=== PATIENT | female | born 1980 | race Caucasian/White ===

== ENCOUNTER 2020-09-23 16:22 | Emergency (ER) | payer MEDICAID, SELFPAY ==
[2020-09-23 16:24] VITALS: BP 128/79; PULSE 79; RESP 16; TEMP 36.9; O2SAT 100; BMI 23.0
--- NOTE | 2020-09-23 16:42 | XR_ITS ---
PROCEDURE: XR FINGER RT MIN 2V CLINICAL INDICATION: injury Pain following injury, laceration COMPARISON: No exams were available for comparison FINDINGS: There is a comminuted fracture involving the distal aspect of the distal phalanx the 3rd digit. There are multiple small bony fragments which are somewhat displaced at the laceration site IMPRESSION: Comminuted fracture distal phalanx 3rd digit Dictated by: Olman Palacios MD 09/23/2020 17:47 Olman Palacios MD in [place] 09/23/2020 17:47
--- NOTE | 2020-09-23 17:03 | HMH.EDGENADL ---
ED Disposition Clinical Impression: Phalanx, distal fracture of finger Qualifiers: Encounter type: initial encounter Finger: middle finger Fracture type: open Fracture alignment: displaced Laterality: right Qualified Code(s): S62.632B - Displaced fracture of distal phalanx of right middle finger, initial encounter for open fracture Laceration of middle finger Qualifiers: Encounter type: initial encounter Damage to nail status: with damage Foreign body presence: without foreign body Laterality: right Qualified Code(s): S61.312A - Laceration without foreign body of right middle finger with damage to nail, initial encounter Nailbed laceration, finger Qualifiers: Encounter type: initial encounter Qualified Code(s): S61.319A - Laceration without foreign body of unspecified finger with damage to nail, initial encounter Disposition: Home, Self-Care Condition on Discharge: Good Instructions: DI for Laceration Repair Additional Instructions: Keep the bandage and splint on until you see Dr. Mcdaniel Call Dr. Mcdaniel tomorrow to make appointment to be seen within 3 to 4 days Take Keflex as prescribed Elevate hand to reduce swelling and pain Tylenol 3, and then [place] as needed for pain Return to the emergency department if intolerable pain, fever, red streaks. Additional instructions for CONTROLLED SUBSTANCES: You have been prescribed a medication that is a controlled substance. Controlled substances include pain medications known as opiates and sedative nerve medications known as benzodiazepines. Tramadol, fioricet, and gabapentin are also controlled substances. Some common opiates include: Codeine (such as Tylenol #3) Hydrocodone (Vicodin, Lortab, Lorcet, [place]) Oxycodone (Percocet, Percodan, Oxycodone, Oxy IR) Some common benzodiazepines include: Diazepam (Valium) Lorazepam (Ativan) Alprazolam (Xanax) Clonazepam (Klonopin) Oxazepam (Serax) All of these controlled substances are highly addictive and frequently abused. Misuse can and frequently does lead to addiction as well as overdose and . Medication should be stored in a locked cabinet or other secure storage unit. Do not store the medication in a motor vehicle. Short term supplies, 3 days or less, are prescribed because of the highly addictive nature of the medication. Any of the controlled substance medication NOT taken should be disposed of properly and NOT SAVED. The recommended method of disposing of unused medications is: Place the medicines in a sealable plastic bag. If the medicine is a solid, crush it or add water to dissolve it. Add something undesirable (cat litter, coffee grounds, etc.) Dispose of sealed bag in household trash Do not flush or pour unused medicines down a sink or drain. Controlled substances should not be shared, given away or sold. Because of the addictive nature and frequent abuse, these medications are sometimes stolen. These medications should be kept in a safe place where they cannot be stolen. Do not keep them in your car or purse. Lost or stolen prescriptions for controlled substances WILL NOT BE REFILLED in this emergency department, regardless of whether a police report was filed. Prescriptions: Hydrocod/Acet 5/325 mg [[place] 5/325mg tablet] 1 tab PO Q6HP PRN #10 tab PRN Reason: Pain Transmission Status: Received by [facility] 493 cephALEXin [Keflex 500mg Cap] 500 mg PO QID #28 cap Transmission Status: Received by [facility] 493 Referrals: Lluvia Bagley [Primary Care Provider] - - Critical Care Critical Care Time: No Attestation: On 09/23/20, the high probability of a clinically significant, sudden or life threatening deterioration of the following system(s) required my full and direct attention, intervention and personal management. The time I documented below is in addition to time spent performing reported procedures but includes the following listed in this critical care not
--- NOTE | 2020-09-23 17:34 | PC.NURSE ---
ortho department operations manager paged.
--- NOTE | 2020-09-23 17:37 | PC.NURSE ---
Dr Hamilton speaking with Ortho content strategy lead at this time.
[2020-09-23 18:29] VITALS: BP 122/82; PULSE 77; RESP 19; TEMP 36.9; O2SAT 100
== END 2020-09-23 18:40 | disposition home or self-care (01) ==
PROVIDERS: Emergency Provider Emergency Medicine; PCP Nurse Practitioner Family
DX: S62.632B Displaced fracture of distal phalanx of right middle finger, initial encounter for open fracture (principal); S61.312A Laceration without foreign body of right middle finger with damage to nail, initial encounter; Z23 Encounter for immunization; W31.2XXA Contact with powered woodworking and forming machines, initial encounter; Y92.89 Other specified places as the place of occurrence of the external cause; F17.210 Nicotine dependence, cigarettes, uncomplicated
CPT/HCPCS: 11760; 73140; 90471; 90715; 99283

== ENCOUNTER → 2021-07-29 10:59 | Outpatient (CLI) | payer MEDICAID, SELFPAY | PROVIDERS: PCP Nurse Practitioner Family; Visit Provider Nurse Practitioner | DX: Z20.822 Contact with and (suspected) exposure to COVID-19 (principal) | CPT/HCPCS: C9803; U0003; U0005 ==

== ENCOUNTER 2022-02-03 16:03 | Emergency (ER) | payer MEDICAID, SELFPAY ==
[2022-02-03 16:40] VITALS: BP 118/74; PULSE 89; RESP 16; TEMP 37.4; O2SAT 98; BMI 20.4
--- NOTE | 2022-02-03 16:52 | HMH.EDUTC ---
[facility] [place] Clinical Impression: Flu-like symptoms Disposition: Home, Self-Care Condition on Discharge: Good Instructions: How to Avoid a Cold or Flu, Influenza, Nausea and Vomiting-Adult, Ondansetron, Oseltamivir Additional Instructions: ? Start Tamiflu today if you are going to take it. Discussed risk and possible benefits. ? Lots of rest ? Increase Fluids water, Gatorade, powerade, pedialyte,if /toddler/child ? Alternate Tylenol and / or ibuprofen as discussed for fever, aches, chills Follow up IMMEDIATELY with your family doctor for new or worsening Symptoms OR no noticeable improvement over the next 48-72 hours, 911 for difficulty or breathing ? You or your child area contagious until no fever, aches, chills for 24 hours with medication for symptoms ? Help Prevent the spread of influenza: ? Wash your hands often. Use soap and water. Wash your hands after you use the bathroom, change a child's diapers, or sneeze. Wash your hands before you prepare or eat food. Use gel hand cleanser that has 60% alcohol, when soap and water are not available. Do not touch your eyes, nose, or mouth unless you have washed your hands first. ? Cover your mouth when you sneeze or cough. Cough into a tissue or the bend of your arm. If you use a tissue, throw it away immediately and wash your hands. ? Clean shared items with a germ-killing globe cleaner. Clean table surfaces, doorknobs, and light switches. Do not share towels, silverware, and dishes with people who are sick. Wash bed sheets, towels, silverware, and dishes with soap and water. ? Wear a mask over your mouth and nose if you are sick. The face mask may help protect others from becoming infected with the flu. Wear the mask when in common areas of your home or if you seek care with a healthcare provider. ? Stay away from others if you are sick. Stay at home until 24 hours after your fever and symptoms are gone. Prescriptions: Oseltamivir Phosphate [Tamiflu 75mg Capsule] 75 mg PO BID #10 cap Transmission Status: Pending to [facility] 493 Ondansetron [Zofran 4mg ODT] 4 mg PO TIDP PRN #9 tab PRN Reason: Nausea Transmission Status: Pending to [facility] 493 Referrals: Lluvia Bagley [Primary Care Provider] - As needed Time of Disposition: 17:41 Medical Decision Making - Darin Inquiry Pt receiving controlled substance: No Darin was queried for this patient: No Vital Signs: 02/03/22 16:40 Temperature 99.3 F Temperature Source Oral Pulse Rate [Right Brachial] 89 Respiratory Rate 16 Blood Pressure [Right Arm] 118/74 Blood Pressure Mean [Right Arm] 88 Blood Pressure Source [Right Arm] Automatic Cuff Blood Pressure Position [Right Arm] Sitting 02 Sat by Pulse Oximetry 98 Oxygen Delivery Method Room Air - Lab Data Lab results reviewed: Yes: I reviewed the patient's lab results. Lab Results 02/03/22 16:48: Influenza Type A Ag Negative, Influenza Type B Ag Negative Medical Decision Narrative: Patient states that she has taken zofran in the past without complications or reactions [facility] [place] - General Stated complaint: fever,Bopdy aches,RUVALCABA V/D Time Seen by Provider: 02/03/22 16:52 Mode of Arrival: Ambulatory Source of Information: Patient Limitations: No Limitations Description of Symptoms (Recalled from Triage Doc. by RN): PATIENT C/O FEVER, HEADACHE, BODY ACHES, DECREASED APPETITE, STOMACH ACHE AND WEAKNESS X 2 DAYS HEENT Symptoms (Recalled from RN notes): Yes Resp Symptoms (Recalled from RN notes): No Skin Symptoms (Recalled from RN notes): No MS Symptoms (Recalled from RN notes): No Functional Status (Recalled from RN notes): WNL - History of Present Illness Provider Complaint: Patient states that she has been having body aches, chills, n/v, tired and over all does not feel well States that she has continued to get worse over the last couple of days States that she feels like she may have the flu - Related Data Previous Rx's Medication In
[2022-02-03 16:57] LABS: UTC Influenza A Antigen Negative (Negative)
[2022-02-03 16:58] LABS: UTC Influenza B Antigen Negative (Negative)
[2022-02-03 17:42] VITALS: BP 118/74; PULSE 89; RESP 16; TEMP 37.4; O2SAT 98
== END 2022-02-03 17:45 | disposition home or self-care (01) ==
PROVIDERS: Nurse Practitioner; Emergency Provider Family Medicine; PCP Nurse Practitioner Family
DX: J11.1 Influenza due to unidentified influenza virus with other respiratory manifestations (principal); F17.210 Nicotine dependence, cigarettes, uncomplicated
CPT/HCPCS: 87804; 99212; G0463

== ENCOUNTER 2022-02-07 10:19 | Emergency (ER) | payer MEDICAID, SELFPAY ==
[2022-02-07 10:34] VITALS: BP 131/68; PULSE 86; RESP 16; TEMP 36.9; O2SAT 98; BMI 21.2
--- NOTE | 2022-02-07 10:37 | HMH.EDUTC ---
[facility] [place]ression: Abdominal pain Qualifiers: Abdominal location: unspecified location Qualified Code(s): R10.9 - Unspecified abdominal pain Disposition: Still a Patient Condition on Discharge: Fair Referrals: Lluvia Bagley [Primary Care Provider] - Medical Decision Making - Medical Records Medical records reviewed: No: I reviewed the patient's medical records. - Darin Inquiry Pt receiving controlled substance: No Vital Signs: 02/07/22 10:34 Temperature 98.5 F Temperature Source Oral Pulse Rate [Left] 86 Respiratory Rate 16 Blood Pressure [Right Arm] 131/68 Blood Pressure Mean [Right Arm] 89 02 Sat by Pulse Oximetry 98 - Lab Data Lab Results 02/07/22 10:33: Influenza Type A Ag Negative, Influenza Type B Ag Negative 02/07/22 10:40: Group A Strep Rapid Negative Orders (Tests/Meds): ORDERS Category Date Time Status Strep Screen Confirmation Stat Micro 02/07/22 10:40 Received Medical Decision Narrative: She was transferred to the er due to her abdominal pain [facility] [place] - General Stated complaint: fever, vomiting, diarrhea, stomach pains Time Seen by Provider: 02/07/22 10:37 - History of Present Illness Provider Complaint: She states that she has been having abdominal pain, n/v/d for the past 6 days. She denies any fever. She does have a very poor appetite also. - Related Data Previous Rx's Medication Instructions Recorded Ondansetron [Zofran 4mg ODT] 4 mg PO TIDP PRN #9 tab 02/03/22 Oseltamivir Phosphate [Tamiflu 75 mg PO BID #10 cap 02/03/22 75mg Capsule] Allergies Allergy/AdvReac Type Severity Reaction Status Date / Time No Known Allergies Allergy Verified 09/23/20 16:42 [facility] History - Hepatitis A Screen Attestation statement:: This patient has been screened for Hepatitis A risk factors. I have reviewed the patient's past medical history: Yes Medical History: Denies:: Diabetes Mellitus Type 1, Diabetes Mellitus Type 2 - Social History Smoking Status: Current every day smoker # Packs/Day (cigarettes): 1 Alcohol Intake: never Occupational Status: employed ROS Obtained: Yes All systems reviewed & no additional complaints - Constitutional Constitutional: Reports chills, Reports fever(s) Physical Exam - General General appearance: alert, in no apparent distress - Head Head exam: atraumatic, normocephalic, normal inspection - Eye Eye exam: Present: normal appearance, PERRL, EOMI - ENT ENT exam: Present: normal exam, normal oropharynx, mucous membranes moist, TM's normal bilaterally, normal external ear exam - Neck Neck exam: Present: normal inspection, full ROM, trachea midline. Absent: meningismus, lymphadenopathy - Chest Chest inspection: Present: normal inspection, symmetric chest wall rise. Absent: tenderness - Respiratory Respiratory exam: Present: normal lung sounds bilaterally. Absent: respiratory distress - Cardiovascular Cardiovascular exam: Present: regular rate, normal rhythm. Absent: JVD - Abdominal Exam Abdominal exam: Present: soft, normal bowel sounds. Absent: distention, tenderness, guarding - Extremities Exam Extremities exam: Present: normal inspection, full ROM, normal capillary refill. Absent: calf tenderness - Back Exam Back exam: Present: normal inspection. Absent: tenderness - Neurological Exam Neurological exam: Present: alert, oriented X3 - Psychiatric Psychiatric exam: Present: normal affect, normal mood - Skin Skin exam: Present: warm, dry, intact, normal color - Lymphatic Lymphatic Findings: no adenopathy
[2022-02-07 10:39] LABS: UTC Influenza A Antigen Negative (Negative); UTC Influenza B Antigen Negative (Negative)
[2022-02-07 11:12] LABS: Strep Scrn Group A (Rapid) Negative (Negative)
--- NOTE | 2022-02-07 11:41 | PC.NURSE ---
patient ambulatory to restroom to provide UA; ambulatory without complications
[2022-02-07 11:43] VITALS: BP 127/70; PULSE 80; O2SAT 99
[2022-02-07 11:45] LABS: Microscopic, Urine URINE MICROSCOPIC (MICROSCOPIC)
[2022-02-07 11:48] VITALS: BP 127/70; PULSE 70; RESP 16; TEMP 36.8; O2SAT 99; BMI 21.2
--- NOTE | 2022-02-07 11:50 | PC.NURSE ---
ED MD at
[2022-02-07 11:51] LABS: Appearance,Urine CLEAR (Clear); Bilirubin,Urine Negative (Negative); Blood, Urine TRACE-I (Negative); Color,Urine YELLOW (Yellow); Glucose,Urine (UA) Negative (Negative); Ketones,Urine Negative (Negative); Leukocyte Esterase,Urine Negative (Negative); Nitrate,Urine Negative (Negative); Protein,Urine Negative (Negative); Urobilinogen,Urine 0.2 EU/dl (0.2)
[2022-02-07 11:53] LABS: Urine Pregnancy, HCG Qual. Negative (Negative)
--- NOTE | 2022-02-07 11:54 | HMH.EDGENADL ---
ED Disposition Clinical Impression: Gastroenteritis Disposition: Home, Self-Care Condition on Discharge: Good Instructions: DI for Viral Gastroenteritis -- Adult Additional Instructions: Collect a diarrhea sample using the provided supplies and return it along with the order form to ER registration at [facility] for testing. Obtain the results of this test from your primary care provider the next day. Phenergan as needed for nausea and vomiting. Rest, drink plenty of fluids. Continue Tylenol and ibuprofen for pain or fever. Follow-up with primary care provider if not improving in 2 to 3 days. Additional instructions for VOMITING/DIARRHEA: Drink plenty of fluids. Return immediately if severe abdominal pain, uncontrollable vomiting, shortness of breath, fever, bloody diarrhea, vomiting of blood or abdominal distention. Prescriptions: Promethazine HCl [Phenergan 25mg tab] 25 mg PO Q6HP PRN #10 tab PRN Reason: Nausea And Vomiting Transmission Status[facility] metroNIDAZOLE [Metronidazole] 500 mg PO QID #40 tab Transmission Status: Pending to [facility] 493 Vancomycin HCl 125 mg PO QID #40 cap Transmission Status: Received by [facility] 493 Referrals: Lluvia Bagley [Primary Care Provider] - Forms: Work/School Release - Critical Care Critical Care Time: No Attestation: On 02/07/22, the high probability of a clinically significant, sudden or life threatening deterioration of the following system(s) required my full and direct attention, intervention and personal management. The time I documented below is in addition to time spent performing reported procedures but includes the following listed in this critical care notation. Medical Decision Making - Medical Records Medical records reviewed: Yes: I reviewed the patient's medical records. MR Comment: Reviewed note from 02/03 [facility] [[email or web address] visit - Darin Inquiry Pt receiving controlled substance: No Vital Signs: 02/07/22 10:34 02/07/22 11:43 02/07/22 11:48 Temperature 98.5 F 98.2 F Temperature Source Oral Oral Pulse Rate Pulse Rate [Left] 86 80 70 Respiratory Rate 16 16 Blood Pressure Blood Pressure [Right Arm] 131/68 127/70 127/70 Blood Pressure Mean [Right Arm] 89 89 89 Blood Pressure Source [Right Arm] Automatic Cuff Blood Pressure Position [Right Arm] Sitting 02 Sat by Pulse Oximetry 98 99 99 Oxygen Delivery Method Room Air Room Air 02/07/22 12:10 02/07/22 13:42 Temperature 98.2 F Temperature Source Pulse Rate 63 63 Pulse Rate [Left] Respiratory Rate 18 Blood Pressure 109/73 L 109/73 L Blood Pressure [Right Arm] Blood Pressure Mean [Right Arm] Blood Pressure Source [Right Arm] Blood Pressure Position [Right Arm] 02 Sat by Pulse Oximetry 98 Oxygen Delivery Method Room Air Room Air - Lab Data Lab Results 02/07/22 10:33: Influenza Type A Ag Negative, Influenza Type B Ag Negative 02/07/22 10:40: Group A Strep Rapid Negative 02/07/22 11:42: Urine Color Yellow, Urine Appearance Clear, Urine pH 5.0, Ur Specific Watson 1.020, Urine Protein Negative, Urine Glucose (UA) Negative, Urine Ketones Negative, Urine Blood Trace-i, Urine Nitrate Negative, Urine Bilirubin Negative, Urine Urobilinogen 0.2, Ur Leukocyte Esterase Negative, Urine RBC Occasional, Urine WBC Occasional, Ur Squamous Epith Cells 3-5, Urine Bacteria Trace 02/07/22 11:42: Urine HCG, Qual Negative 02/07/22 12:02: WBC 6.4, RBC 3.77 L, Hgb 12.6, Hct 38.1, MCV 101.0 H, MCH 33.4 H, MCHC 33.0, RDW 12.7, Plt Count 274, MPV 8.1, Neut % (Auto) 65.4, Lymph % (Auto) 27.4, Cobb % (Auto) 4.8, Eos % (Auto) 1.7, Baso % (Auto) 0.7, Neut # (Auto) 4.2, Lymph # (Auto) 1.8, Cobb # (Auto) 0.3, Eos # (Auto) 0.1, Baso # (Auto) 0.0 02/07/22 12:02: Sodium 138, Potassium 3.6, Chloride 111 H, Carbon Dioxide 24, Anion Gap 6.6, BUN 11, Creatinine 0.60, Estimated Creat Clear 104, Estimated GFR 109, Est GFR ( Amer) 132, Glucose 88, Calcium 8.0 L, Tota
[2022-02-07 12:06] LABS: WBC,Urine Occasional #/hpf (0-3)
[2022-02-07 12:07] LABS: Bacteria,Urine Trace /lpf; RBC,Urine Occasional #/hpf (0-3)
[2022-02-07 12:10] VITALS: BP 109/73; PULSE 63; O2SAT 98
[2022-02-07 12:12] LABS: Basophils % 0.7 % (0.1-2.0); Eosinophils # 0.1 K/mm3 (0.0-0.4); Eosinophils % 1.7 % (0.1-12.0); Hematocrit 38.1 % (37.0-47.0); Hemoglobin 12.6 g/dL (12.2-16.2); Lymphocytes # 1.8 K/mm3 (0.7-4.5); Lymphocytes % 27.4 % (10-50); Mean Corpuscular Hemoglobin 33.4 pg (27.0-31.2); Mean Platelet Volume 8.1 fl (7.4-10.4); Monocytes # 0.3 K/mm3 (0.1-1.0); Monocytes % 4.8 % (1.7-9.3); Neutrophils # 4.2 K/mm3 (1.8-7.8); Neutrophils % 65.4 % (37.0-80.0); Platelet Count 274 K/mm3 (142-424); Red Blood Count 3.77 M/mm3 (4.20-5.40); Red Cell Distribution Width 12.7 % (11.5-17.5); White Blood Count 6.4 K/mm3 (4.8-10.8)
[2022-02-07 12:14] LABS: Chloride 111 mmol/L (98-107); Potassium 3.6 mmoL/L (3.5-5.1); Sodium 138 mmol/L (136-145)
[2022-02-07 12:17] LABS: Alanine Aminotransferase 12 U/L (12-78); Albumin Level 3.3 g/dl (3.5-5.0); Albumin/Globulin Ratio 1.3 (1.1-1.8); Alkaline Phosphatase 72 U/L (38-126); Aspartate Amino Transferase 30 U/L (14-36); Bilirubin,Total 0.2 mg/dl (0.2-1.3); Blood Urea Nitrogen 11 mg/dl (7-17); Creatinine Clearance Estimated 104 mL/min (50-200); Estimated Glomerular Filt Rate 109 ml/min (>60); GFR (African American) 132 ML/MIN (>60); Globulin 2.5 g/dL (1.3-3.2); Glucose 88 mg/dl (74-100); Total Protein,Serum 5.8 g/dl (6.3-8.2)
[2022-02-07 12:37] LABS: Anion Gap 6.6 mEq/L (5-15); Carbon Dioxide 24 mmol/L (22.0-30.0)
[2022-02-07 13:42] VITALS: BP 109/73; PULSE 63; RESP 18; TEMP 36.8; O2SAT 98
[2022-02-07 15:37] LABS: Adenovirus F 40/41, stool Not Detected (NotDetected); Astrovirus Not Detected (NotDetected); Cryptosporidium Not Detected (NotDetected); Cyclospora Cayetanesis Not Detected (NotDetected); Entamoeba histolytica Not Detected (NotDetected); Enteroaggregative E coli Not Detected (NotDetected); Enterotoxigenic E coli Not Detected (NotDetected); Giardia lamblia Not Detected (NotDetected); Norovirus Not Detected (NotDetected); Plesimonas Shigalloides, PCR Not Detected (NotDetected); Rotavirus A Not Detected (NotDetected); Salmonella, PCR Not Detected (NotDetected); Sapovirus Not Detected (NotDetected); Shiga-like toxin E coli Not Detected (NotDetected); Shigella Enterovasive E coli Not Detected (NotDetected); Vibrio Cholerae Not Detected (NotDetected); Vibrio, PCR Not Detected (NotDetected); Yersinia Entercolitica, PCR Not Detected (NotDetected)
[2022-02-07 18:11] LABS: Campylobacter Detected (NotDetected); Enteropathogenic E coli Detected (NotDetected)
[2022-02-07 18:12] LABS: Clostridium Difficile A/B, PCR Detected (NotDetected)
--- NOTE | 2022-02-07 18:26 | PC.NURSE ---
Took critical diarrhea panel results from lab, repeated and confirmed with lab, reported findings and results to Dr. Hamilton. He sent in prescription for antibiotics. Called pt and educated her on results/medications. LEt her know that the medicine had been sent in to in [place].
== END 2022-02-07 13:43 | disposition home or self-care (01) ==
LOC: UTC 10:22 → ER 11:38
PROVIDERS: Nurse Practitioner Family; Emergency Provider Emergency Medicine; PCP Nurse Practitioner Family
DX: A04.72 Enterocolitis due to Clostridium difficile, not specified as recurrent (principal); F17.210 Nicotine dependence, cigarettes, uncomplicated
CPT/HCPCS: 80053; 81001; 81025; 85025; 87430; 87506; 87804; 96360; 96365; 96375; 99284

== ENCOUNTER 2022-04-03 17:08 | Emergency (ER) | payer MEDICAID, SELFPAY ==
--- NOTE | 2022-04-03 17:36 | XR_ITS ---
PROCEDURE INFORMATION: Exam: XR Left Foot Exam date and time: 04/03/2022 5:37 PM Age: 41 years old Clinical indication: Injury or trauma; Other: Stepped on a nail; Puncture; Foot; Left; Without foreign body; Injury date: 04/03/22; Additional info: Stepped on nail TECHNIQUE: Imaging protocol: XR Left foot. Views: 3 or more views. COMPARISON: No relevant prior studies available. FINDINGS: Bones/joints: Normal. Soft tissues: No radiopaque foreign bodies. IMPRESSION: No radiopaque foreign bodies.
--- NOTE | 2022-04-03 17:54 | HMH.EDUTC ---
[facility] [place] Clinical Impression: Need for Tdap vaccination Puncture wound of left foot Qualifiers: Encounter type: initial encounter Qualified Code(s): S91.332A - Puncture wound without foreign body, left foot, initial encounter Disposition: Home, Self-Care Condition on Discharge: Good Instructions: DI for Puncture Wound, Tetanus, Diphtheria, Pertussis (Tdap) Vaccine Additional Instructions: Keep the wound clean and dry. Follow up with your regular doctor. Take the antibiotics as directed and apply the topical antibiotics as directed. Soak the foot in warm epsom salts water three times per day for like 5 minutes each time. Watch the puncture wounds for signs of worsening infection, such as worsening redness, drainage, swelling, etc. GO TO THE ER FOR ANY WORSENING SYMPTOMS Follow up with Dr. Contreras (podiatry) for any continued issues with your foot. I put in a referral but you would need to call her office and schedule an appointment. Prescriptions: Mupirocin [Bactroban 2% Ointment 22gm tube] 1 applicatio TP TID 7 Days #1 gm Transmission Status: Received by [facility] 493 cephALEXin [cephALEXin 500mg capsule] 500 mg PO Q6H 10 Days #40 cap Transmission Status: Received by [facility] 493 Referrals: Lluvia Bagley [Primary Care Provider] - Jasmin Contreras DPM [Staff Physician] - Time of Disposition: 18:21 Medical Decision Making - Medical Records Medical records reviewed: No: I reviewed the patient's medical records. - Darin Inquiry Pt receiving controlled substance: No Vital Signs: 04/03/22 18:10 04/03/22 18:54 Temperature 99.0 F 99.0 F Temperature Source Oral Pulse Rate 82 Pulse Rate [Left Radial] 82 Respiratory Rate 20 20 Blood Pressure 122/54 L Blood Pressure [Right Arm] 122/54 L Blood Pressure Mean [Right Arm] 76 02 Sat by Pulse Oximetry 99 Orders (Tests/Meds): ED MEDICATIONS Discontinued Medications Generic Name Dose Route Start Last Admin Trade Name Freq PRN Reason Stop Dose Admin Ceftriaxone Sodium 1 gm 04/03/22 18:18 04/03/22 18:38 Ceftriaxone 1gm Vial IM 04/03/22 18:19 1 gm ONCE ONE Administration Lidocaine HCl 0 ml 04/03/22 18:18 04/03/22 18:38 Lidocaine 1% 5ml Pf Vial IM 04/03/22 18:19 2 ml ONCE ONE Administration Tetanus/Diphtheria Toxoids 0.5 ml 04/03/22 18:38 04/03/22 18:39 Tetanus-Diphth Toxoid, Adult 0.5ml Syr IM 04/03/22 18:39 0.5 ml .ONCE ONE Administration [facility] [place] - General Stated complaint: ao 04/03 @1130 nail Left foot Time Seen by Provider: 04/03/22 17:54 - History of Present Illness Provider Complaint: She stepped on a nail earlier today. She is having left foot pain. Her tetanus immuniaztion is not up to date. - Related Data Previous Rx's Medication Instructions Recorded Ondansetron [Zofran 4mg ODT] 4 mg PO TIDP PRN #9 tab 02/03/22 Oseltamivir Phosphate [Tamiflu 75 mg PO BID #10 cap 02/03/22 75mg Capsule] Promethazine HCl [Phenergan 25mg 25 mg PO Q6HP PRN #10 tab 02/07/22 tab] Vancomycin HCl 125 mg PO QID #40 cap 02/07/22 metroNIDAZOLE [Metronidazole] 500 mg PO QID #40 tab 02/07/22 Mupirocin [Bactroban 2% Ointment 1 applicatio TP TID 7 Days #1 gm 04/03/22 22gm tube] cephALEXin [cephALEXin 500mg 500 mg PO Q6H 10 Days #40 cap 04/03/22 capsule] Allergies Allergy/AdvReac Type Severity Reaction Status Date / Time No Known Allergies Allergy Verified 04/03/22 18:12 [facility] History - Hepatitis A Screen Attestation statement:: This patient has been screened for Hepatitis A risk factors. I have reviewed the patient's past medical history: Yes Medical History: Denies:: Diabetes Mellitus Type 1, Diabetes Mellitus Type 2 Other Surgeries: Yes: Hysterectomy-Partial - Social History Smoking Status: Current every day smoker # Packs/Day (cigarettes): 1 Alcohol Intake: never Occupational Status: employed ROS Obtained: Yes All sy
[2022-04-03 18:10] VITALS: BP 122/54; PULSE 82; RESP 20; TEMP 37.2; O2SAT 99; BMI 21.2
[2022-04-03 18:54] VITALS: BP 122/54; PULSE 82; RESP 20; TEMP 37.2
== END 2022-04-03 18:55 | disposition home or self-care (01) ==
PROVIDERS: Emergency Provider Nurse Practitioner Family; PCP Nurse Practitioner Family
DX: S91.332A Puncture wound without foreign body, left foot, initial encounter (principal); F17.210 Nicotine dependence, cigarettes, uncomplicated; W45.0XXA Nail entering through skin, initial encounter
CPT/HCPCS: 73630; 90471; 90714; 96372; 99285; J0696

== ENCOUNTER 2023-10-31 13:17 | Emergency (ER) | payer MEDICAID, SELFPAY ==
[2023-10-31] VITALS (7 sets, daily range): BP systolic 121–160; BP diastolic 78–103; PULSE 67–99; RESP 18–20; TEMP 36.8; O2SAT 96–99; BMI 21.2
--- NOTE | 2023-10-31 13:25 | CT_ITS ---
FINAL REPORT TECHNIQUE: The patient was injected with IV contrast. Axial images were obtained through the chest in a PE protocol. 3-D reconstruction images were also performed. Individualized dose reduction techniques using automated exposure control or adjustment of the MA and/or KV according to patient's size were employed. CLINICAL HISTORY: fall, Posterior L thoracic cage pain COMPARISON: None FINDINGS: Mediastinal vasculature is adequately opacified. No pulmonary artery filling defects are identified to suggest PE. There is no aortic dissection. There is no axillary adenopathy. There are densely calcified mediastinal lymph nodes. The heart size is normal. There is no pericardial or pleural effusion. There is scarring or atelectasis at the lung bases. No definite fracture identified. IMPRESSION: No pulmonary embolus or dissection. No acute findings. Reviewed, Interpreted and Dictated by Cyril Antonio MD Transcribed by Lia Arita Authenticated and [facility]
--- NOTE | 2023-10-31 13:25 | CT_ITS ---
FINAL REPORT TECHNIQUE: Pre-and postcontrast images of the abdomen through the pelvis were performed by computed tomography. Extensive 3-D reconstruction images were performed. A CTA was performed. This study was performed with techniques to keep radiation doses as low as reasonably achievable (ALARA). Individualized dose reduction techniques using automated exposure control or adjustment of mA and/or kV according to the patient's size were employed. CLINICAL HISTORY: Fall, L posterior thoracic cage, L flank, L CVA COMPARISON: None FINDINGS: ABDOMEN: Precontrast images demonstrate no evidence of nephrolithiasis. The gallbladder is contracted. Bilateral adrenal hyperplasia is noted. The liver, spleen and pancreas are unremarkable. PELVIS: The appendix is not identified. The urinary bladder is unremarkable. There is no evidence of pelvic mass or inflammation. Fluid is noted in the small bowel. The bony pelvis is unremarkable. CTA: The abdominal aorta is proper caliber. The SMA, celiac axis, and ASYA are patent. There is no significant stenosis or calcification. The renal arteries are patent bilaterally. The iliac arteries are patent bilaterally. IMPRESSION: No acute abdominopelvic findings. Reviewed, Interpreted and Dictated by Cyril Antonio MD Transcribed by Lia Arita Authenticated and [facility]
--- NOTE | 2023-10-31 13:27 | CT_ITS ---
FINAL REPORT TECHNIQUE: Axial images were obtained of the lumbar spine by computed tomography. Coronal and sagittal reconstruction process performed. This study was performed with techniques to keep radiation doses as low as reasonably achievable (ALARA). Individualized dose reduction techniques using automated exposure control or adjustment of mA and/or kV according to the patient''s size were employed. CLINICAL HISTORY: Fall, low back pain COMPARISON: None FINDINGS: Lumbar vertebrae show normal height. Disc spaces are well-preserved. There is no malalignment. The facets are properly aligned. IMPRESSION: No fracture. Reviewed, Interpreted and Dictated by Cyril Antonio MD Transcribed by Lia Arita Authenticated and [facility]
--- NOTE | 2023-10-31 13:27 | CT_ITS ---
FINAL REPORT TECHNIQUE: Axial images were obtained of the thoracic spine by computed tomography. Coronal and sagittal reconstruction process performed. This study was performed with techniques to keep radiation doses as low as reasonably achievable (ALARA). Individualized dose reduction techniques using automated exposure control or adjustment of mA and/or kV according to the patient's size were employed. CLINICAL HISTORY: Mid back pain, fall COMPARISON: None FINDINGS: There is mild anterior osteophyte formation throughout the midthoracic spine. There are small Schmorl's nodes involving the midthoracic vertebra. Thoracic vertebrae show normal height. There is no malalignment. The facets are properly aligned. IMPRESSION: No fracture. Reviewed, Interpreted and Dictated by Cyril Antonio MD Transcribed by Lia Arita Authenticated and [facility]
--- NOTE | 2023-10-31 13:27 | [facility].EDGENADL ---
Discharge Plan Disposition Patient Disposition: Home, Self-Care Prescriptions Prescriptions: New ibuprofen 800 mg tablet 800 mg PO TID PRN (Reason: pain) 7 Days Qty: 20 0RF cyclobenzaprine 5 mg tablet 5 mg PO TID PRN (Reason: muscle spasm) 5 Days Qty: 15 0RF ibuprofen 600 mg tablet 600 mg PO Q8H PRN (Reason: pain) 7 Days Qty: 21 0RF cyclobenzaprine 5 mg tablet 5 mg PO TID PRN (Reason: muscle spasm) 5 Days Qty: 15 0RF No Action oseltamivir 75 MG capsule 75 mg PO BID Qty: 10 0RF ondansetron 4 MG tablet,disintegrating 4 mg PO TIDP PRN (Reason: Nausea) Qty: 9 0RF promethazine 25 MG tablet 25 mg PO Q6HP PRN (Reason: Nausea And Vomiting) Qty: 10 0RF vancomycin 125 MG capsule 125 mg PO QID Qty: 40 0RF metronidazole 500 MG tablet 500 mg PO QID Qty: 40 0RF cephalexin 500 MG capsule 500 mg PO Q6H 10 Days Qty: 40 0RF mupirocin 22 GM ointment 1 applicatio TP TID 7 Days Qty: 1 0RF Referrals Follow up/Referrals: Libby Gutierrez APRN [Primary Care Provider] - See instructions Activity Restrictions/Add. Instructions Additional Instructions/Restrictions: No obvious injury on the CAT scans today or any other abnormalities on your blood test. Expect worsening pain over the next several days. Return with any worsening symptoms or other concerns. Clinical Impressions Clinical Impression: Acute low back pain due to trauma Instructions Patient Instructions: DI for Low Back Pain Discharge ED Provider: Freddy Lal General Adult HPI <Freddy Lal MD - Last Filed: 10/31/23 15:24> General Chief complaint: Back Pain/Injury Stated complaint: AO, Back pain Time Seen by Provider: 10/31/23 13:21 History of Present Illness HPI narrative: Patient is a 43-year-old female with no pertinent past medical history not on blood thinners presents emergency department for evaluation of traumatic injury sustained in a fall. Patient fell yesterday onto her back down approximately 4 steps striking her mid left thoracolumbar spine. No loss of consciousness or head trauma. Since then she has had severe mid back pain, left back pain, left flank pain. No other acute complaints at this time. Related Data Previous Rx's Medication Instructions Recorded ondansetron 4 mg disintegrating 4 mg PO TIDP PRN Nausea #9 tabs 02/03/22 tablet oseltamivir 75 mg capsule 75 mg PO BID #10 caps 02/03/22 metronidazole 500 mg tablet 500 mg PO QID #40 tabs 02/07/22 promethazine 25 mg tablet 25 mg PO Q6HP PRN Nausea And 02/07/22 Vomiting #10 tabs vancomycin 125 mg capsule 125 mg PO QID #40 caps 02/07/22 cephalexin 500 mg capsule 500 mg PO Q6H 10 days #40 caps 04/03/22 mupirocin 2 % topical ointment 1 applicatio topical TID 7 days ##1 04/03/22 cyclobenzaprine 5 mg tablet 5 mg PO TID PRN muscle spasm 5 10/31/23 days #15 tabs cyclobenzaprine 5 mg tablet 5 mg PO TID PRN muscle spasm 5 10/31/23 days #15 tabs ibuprofen 600 mg tablet 600 mg PO Q8H PRN pain 7 days #21 10/31/23 tabs ibuprofen 800 mg tablet 800 mg PO TID PRN pain 7 days #20 10/31/23 tabs Allergies Allergy/AdvReac Type Severity Reaction Status Date / Time No Known Allergies Allergy Verified 04/03/22 18:12 [facility] <Freddy Lal MD - Last Filed: 10/31/23 15:24> [facility] Disclaimer: The information contained in this section may have been updated after the patient was seen, as this information can be updated by other users. Social History Smoking Status: Current some day smoker alcohol intake: never current occupational status: employed Travel in the last 8 weeks: None <Freddy Lal MD - Last Filed: 10/31/23 15:24> ROS Obtained: Yes Systems reviewed as appropriate & no additional complaints except as documented Physical Exam <Freddy Lal MD - Last Filed: 10/31/23 15:24> General General appearance: alert and in no apparent distress Head Head exam: atraumatic and normocephalic Eye Eye exam: Present PERRL and EOMI ENT ENT exam: Present mucous membranes moist Neck Neck exam: Present normal inspection and full ROM; Absent tenderness Chest Chest inspection: Present normal inspection and symmetric chest wall rise Respiratory Respiratory exam: Present normal lung sounds bilaterally; Absent respiratory distress Cardiovascular Cardiovascular exam: Present regular rate and normal rhythm Abdominal Exam Abdominal exam: Present soft and tenderness (Left flank, no tenderness in the 4 quadrants); Absent rebound Extremities Exam Extremities exam: Present normal inspection and other (No tenderness in bilateral upper or lower extremities) Back Exam Back exam: Present other (Midline thoracic tenderness, left CVA tenderness and bruising) Neurological Exam Neurological exam: Present alert; Absent motor sensory deficit Psychiatric Psychiatric exam: Present normal affect Skin Skin exam: Present warm and dry Medical Decision Making <Freddy Lal MD - Last Filed: 10/31/23 15:24> Darin Medeiros Pt receiving controlled substance: No Vital Signs: 10/31/23 13:19 10/31/23 13:30 10/31/23 14:00 Pulse Rate 93 H 80 Pulse Rate [Right] 99 H Respiratory Rate 18 20 20 Blood Pressure 160/103 H 148/80 H Blood Pressure [Right Arm] 143/101 H Blood Pressure Mean 123 107 Blood Pressure Mean [Right Arm] 115 Blood Pressure Source [Right Arm] Automatic Cuff 02 Sat by Pulse Oximetry 99 96 98 Oxygen Delivery Method Room Air 10/31/23 14:30 10/31/23 15:30 10/31/23 16:00 Pulse Rate 82 80 67 Pulse Rate [Right] Respiratory Rate 20 20 Blood Pressure 131/83 121/84 127/86 Blood Pressure [Right Arm] Blood Pressure Mean 99 103 96 Blood Pressure Mean [Right Arm] Blood Pressure Source [Right Arm] 02 Sat by Pulse Oximetry 98 98 99 Oxygen Delivery Method Lab Data Lab Results 10/31/23 13:35: WBC 5.9, RBC 4.20, Hgb 13.6, Hct 40.6, MCV 96.5, MCH 32.4 H, MCHC 33.6, RDW 12.5, Plt Count 224, MPV 7.4, Neut % (Auto) 61.6, Lymph % (Auto) 32.8, Addison % (Auto) 3.7, Eos % (Auto) 1.3, Baso % (Auto) 0.4, Neut # (Auto) 3.6, Lymph # (Auto) 1.9, Addison # (Auto) 0.2, Eos # (Auto) 0.1, Baso # (Auto) 0.0, Sodium 137, Potassium 3.8, Chloride 104, Carbon Dioxide 28, Anion Gap 8.8, BUN 16, Creatinine 0.70, Estimated Creat Clear 87, Estimated GFR 90, Est GFR ( Amer) 109, Glucose 97, Calcium 9.0, Total Bilirubin 0.3, AST 34, ALT 23, Alkaline Phosphatase 62, Total Protein 7.2, Albumin 4.3, Globulin 2.9, Albumin/Globulin Ratio 1.5, Serum HCG, Qual Negative 10/31/23 13:35 10/31/23 13:35 Orders (Tests/Meds): ED MEDICATIONS Generic Name Dose Route Start Last Admin Trade Name Freq PRN Reason Stop Dose Admin Sodium Chloride 10 ml 10/31/23 15:18 10/31/23 15:19 Sodium Chloride 0.9% 10ml Syr (Rad Only) IV 11/30/23 15:17 10 ml NEEDED PRN Administration Maintain IV Site Discontinued Medications Generic Name Dose Route Start Last Admin Trade Name Freq PRN Reason Stop Dose Admin Acetaminophen 1,000 mg 10/31/23 13:25 10/31/23 13:38 Acetaminophen 1,000mg/100ml Vial IV 10/31/23 13:26 1,000 mg ONCE ONE Administration Iopamidol 100 ml 10/31/23 15:18 10/31/23 15:18 Iopamidol-370 (76%);100ml Bottle IV 10/31/23 15:19 100 ml ONCE ONE Administration Morphine Sulfate 4 mg 10/31/23 13:25 10/31/23 13:38 Morphine 4mg/Ml Syringe IV 10/31/23 13:26 4 mg ONCE ONE Administration Morphine Sulfate 4 mg 10/31/23 14:30 10/31/23 15:16 Morphine 4mg/Ml Syringe IV 10/31/23 14:31 4 mg ONCE ONE Administration Sodium Chloride 50 ml 10/31/23 15:18 10/31/23 15:19 0.9 % Sodium Chloride 50 Ml Vial IV 10/31/23 15:19 50 ml ONCE ONE Administration ORDERS Category Date Time Status CT angio abdomen pelvis Stat Cat Scan 10/31/23 13:[address] angio chest - dissection Stat Cat Scan 10/31/23 13:[address] lumbar spine wo con Stat Cat Scan 10/31/23 13:[address] thoracic spine wo con Stat Cat Scan 10/31/23 13:27 Completed CBC w/Auto Diff [Complete Blood Count Auto Diff] Stat Lab 10/31/23 13:35 Completed CMP [Comprehensive Metabolic Panel] Stat Lab 10/31/23 13:35 Completed HCG Qualitative, Serum Stat Lab 10/31/23 13:35 Completed Medical Decision Narrative: In summary patient is a 43-year-old female with past medical history described above who presents emergency department for evaluation of traumatic back pain. Patient is hemodynamically stable nontoxic-appearing upon arrival, afebrile. Differential diagnosis includes fracture, hematoma, renal or splenic laceration, among others. Workup will be conducted with hematologic labs, noncontrasted CT scan of the thoracolumbar spine, CT of the chest, abdomen, pelvis. Based on history and physical exam no concern for intracranial hemorrhage therefore CT imaging well considered will be deferred from an intracranial standpoint. C-spine is cleared clinically. Initial interventions include IV Tylenol, morphine. Workup reviewed by me, hematologic labs are nonactionable. Upon repeat evaluation patient had some improvement of pain however persistent. For this morphine will be redosed. CT formal reads pending at time of transition of care to the oncoming physician, Dr. Goff. <Bib Goff MD - Last Filed: 10/31/23 16:40> Vital Signs: 10/31/23 13:19 10/31/23 13:30 10/31/23 14:00 Pulse Rate 93 H 80 Pulse Rate [Right] 99 H Respiratory Rate 18 20 20 Blood Pressure 160/103 H 148/80 H Blood Pressure [Right Arm] 143/101 H Blood Pressure Mean 123 107 Blood Pressure Mean [Right Arm] 115 Blood Pressure Source [Right Arm] Automatic Cuff 02 Sat by Pulse Oximetry 99 96 98 Oxygen Delivery Method Room Air 10/31/23 14:30 10/31/23 15:30 10/31/23 16:00 Pulse Rate 82 80 67 Pulse Rate [Right] Respiratory Rate 20 20 Blood Pressure 131/83 121/84 127/86 Blood Pressure [Right Arm] Blood Pressure Mean 99 103 96 Blood Pressure Mean [Right Arm] Blood Pressure Source [Right Arm] 02 Sat by Pulse Oximetry 98 98 99 Oxygen Delivery Method Lab Data Lab results reviewed: Yes I reviewed the patient's lab results. Lab Results 10/31/23 13:35: WBC 5.9, RBC 4.20, Hgb 13.6, Hct 40.6, MCV 96.5, MCH 32.4 H, MCHC 33.6, RDW 12.5, Plt Count 224, MPV 7.4, Neut % (Auto) 61.6, Lymph % (Auto) 32.8, Addison % (Auto) 3.7, Eos % (Auto) 1.3, Baso % (Auto) 0.4, Neut # (Auto) 3.6, Lymph # (Auto) 1.9, Addison # (Auto) 0.2, Eos # (Auto) 0.1, Baso # (Auto) 0.0, Sodium 137, Potassium 3.8, Chloride 104, Carbon Dioxide 28, Anion Gap 8.8, BUN 16, Creatinine 0.70, Estimated Creat Clear 87, Estimated GFR 90, Est GFR ( Amer) 109, Glucose 97, Calcium 9.0, Total Bilirubin 0.3, AST 34, ALT 23, Alkaline Phosphatase 62, Total Protein 7.2, Albumin 4.3, Globulin 2.9, Albumin/Globulin Ratio 1.5, Serum HCG, Qual Negative Orders (Tests/Meds): ED MEDICATIONS Generic Name Dose Route Start Last Admin Trade Name Freq PRN Reason Stop Dose Admin Sodium Chloride 10 ml 10/31/23 15:18 10/31/23 15:19 Sodium Chloride 0.9% 10ml Syr (Rad Only) IV 11/30/23 15:17 10 ml NEEDED PRN Administration Maintain IV Site Discontinued Medications Generic Name Dose Route Start Last Admin Trade Name Freq PRN Reason Stop Dose Admin Acetaminophen 1,000 mg 10/31/23 13:25 10/31/23 13:38 Acetaminophen 1,000mg/100ml Vial IV 10/31/23 13:26 1,000 mg ONCE ONE Administration Iopamidol 100 ml 10/31/23 15:18 10/31/23 15:18 Iopamidol-370 (76%);100ml Bottle IV 10/31/23 15:19 100 ml ONCE ONE Administration Morphine Sulfate 4 mg 10/31/23 13:25 10/31/23 13:38 Morphine 4mg/Ml Syringe IV 10/31/23 13:26 4 mg ONCE ONE Administration Morphine Sulfate 4 mg 10/31/23 14:30 10/31/23 15:16 Morphine 4mg/Ml Syringe IV 10/31/23 14:31 4 mg ONCE ONE Administration Sodium Chloride 50 ml 10/31/23 15:18 10/31/23 15:19 0.9 % Sodium Chloride 50 Ml Vial IV 10/31/23 15:19 50 ml ONCE ONE Administration ORDERS Category Date Time Status CT angio abdomen pelvis Stat Cat Scan 10/31/23 13:[address] angio chest - dissection Stat Cat Scan 10/31/23 13:[address] lumbar spine wo con Stat Cat Scan 10/31/23 13:[address] thoracic spine wo con Stat Cat Scan 10/31/23 13:27 Completed CBC w/Auto Diff [Complete Blood Count Auto Diff] Stat Lab 10/31/23 13:35 Completed CMP [Comprehensive Metabolic Panel] Stat Lab 10/31/23 13:35 Completed HCG Qualitative, Serum Stat Lab 10/31/23 13:35 Completed Medical Decision Narrative: In summary patient is a 43-year-old female with past medical history described above who presents emergency department for evaluation of traumatic back pain. Patient is hemodynamically stable nontoxic-appearing upon arrival, afebrile. Differential diagnosis includes fracture, hematoma, renal or splenic laceration, among others. Workup will be conducted with hematologic labs, noncontrasted CT scan of the thoracolumbar spine, CT of the chest, abdomen, pelvis. Based on history and physical exam no concern for intracranial hemorrhage therefore CT imaging well considered will be deferred from an intracranial standpoint. C-spine is cleared clinically. Initial interventions include IV Tylenol, morphine. Workup reviewed by me, hematologic labs are nonactionable. Upon repeat evaluation patient had some improvement of pain however persistent. For this morphine will be redosed. CT formal reads pending at time of transition of care to the oncoming physician, Dr. Goff. Reassessment 4:[address] Goff I took over for Dr. Lal pending CT scans and labs which were all unremarkable radiology reads not consistent with any traumatic injuries reassessment of the patient she still has some soreness will prescribe an anti-inflammatory medication and muscle relaxer return precautions and expected course of illness discussed patient was discharged in stable condition Critical Care <Freddy Lal MD - Last Filed: 10/31/23 15:24> Critical Care Time Critical Care Time: No
[2023-10-31] MEDS: MORPHINE 4MG/ML SYRINGE 4 MG IV ×2 (13:38→15:16)
[2023-10-31] MEDS: ACETAMINOPHEN 1,000MG/100ML VIAL 1000 MG IV (13:38)
[2023-10-31 13:49] LABS: Basophils % 0.4 % (0.1-2.0); Eosinophils # 0.1 K/mm3 (0.0-0.4); Eosinophils % 1.3 % (0.1-12.0); Hematocrit 40.6 % (37.0-47.0); Hemoglobin 13.6 g/dL (12.2-16.2); Lymphocytes # 1.9 K/mm3 (0.7-4.5); Lymphocytes % 32.8 % (10-50); Mean Corpuscular HGB Conc 33.6 g/dL (31.8-35.4); Mean Corpuscular Hemoglobin 32.4 pg (27.0-31.2); Mean Corpuscular Volume 96.5 fl (81-99); Mean Platelet Volume 7.4 fl (7.4-10.4); Monocytes # 0.2 K/mm3 (0.1-1.0); Monocytes % 3.7 % (1.7-9.3); Neutrophils # 3.6 K/mm3 (1.8-7.8); Neutrophils % 61.6 % (37.0-80.0); Platelet Count 224 K/mm3 (142-424); Red Cell Distribution Width 12.5 % (11.5-17.5); White Blood Count 5.9 K/mm3 (4.8-10.8)
[2023-10-31 13:58] LABS: Alanine Aminotransferase 23 U/L (12-78); Albumin Level 4.3 g/dl (3.5-5.0); Albumin/Globulin Ratio 1.5 (1.1-1.8); Alkaline Phosphatase 62 U/L (38-126); Anion Gap 8.8 mEq/L (5-15); Aspartate Amino Transferase 34 U/L (14-36); Bilirubin,Total 0.3 mg/dl (0.2-1.3); Blood Urea Nitrogen 16 mg/dl (7-17); Carbon Dioxide 28 mmol/L (22.0-30.0); Chloride 104 mmol/L (98-107); Creatinine Clearance Estimated 87 mL/min (50-200); Estimated Glomerular Filt Rate 90 ml/min (>60); GFR (African American) 109 ML/MIN (>60); Globulin 2.9 g/dL (1.3-3.2); Glucose 97 mg/dl (74-100); Potassium 3.8 mmoL/L (3.5-5.1); Sodium 137 mmol/L (136-145); Total Protein,Serum 7.2 g/dl (6.3-8.2)
[2023-10-31 14:35] LABS: HCG Qualitative, Serum Negative (Negative)
[2023-10-31] MEDS: IOPAMIDOL-370 (76%);100ML BOTTLE 100 ML IV (15:18)
[2023-10-31] MEDS: 0.9 % SODIUM CHLORIDE 50 ML VIAL IV (15:19)
[2023-10-31] MEDS: SODIUM CHLORIDE 0.9% 10ML SYR (RAD ONLY) 10 ML IV (15:19)
== END 2023-10-31 16:44 | disposition home or self-care (01) ==
PROVIDERS: Emergency Provider Emergency Medicine; PCP Nurse Practitioner Family
DX: M54.6 Pain in thoracic spine (principal); M54.50 Low back pain, unspecified; F17.200 Nicotine dependence, unspecified, uncomplicated; W10.9XXA Fall (on) (from) unspecified stairs and steps, initial encounter
CPT/HCPCS: 71275; 72128; 72131; 74174; 80053; 84703; 85025; 96374; 96375; 96376; 99285; J0131; Q9967